=== PATIENT | male | born 1960 | race Caucasian/White ===

== ENCOUNTER 2021-08-23 20:03 | Emergency (ER) | payer OTHER ==
[~2021-08-23] VITALS: Ht 188 cm; Wt 99.8 kg
[2021-08-24] MEDS ORDERED: CIPRO500 MG PO (00:24)
[2021-08-24] MEDS ORDERED: TAMS0.4C PO (00:24)
== END 2021-08-24 00:35 | disposition home or self-care (01) ==
LOC: ER 20:03
DX: N39.0 Urinary tract infection, site not specified (principal); Z88.0 Allergy status to penicillin; Z88.6 Allergy status to analgesic agent; R33.9 Retention of urine, unspecified

== ENCOUNTER 2021-08-28 06:58 | Outpatient (CLI) | payer OTHER ==
[~2021-08-28 06:58] MED LIST: CIPRO500 MG PO; TAMS0.4C PO
== END 2021-08-28 07:03 | disposition home or self-care (01) ==
LOC: LAB 06:58
PROVIDERS: ATTEND Urology
DX: N30.00 Acute cystitis without hematuria (principal)